=== PATIENT | female | born 1965 | race Caucasian/White ===

== ENCOUNTER → 2018-12-03 | Outpatient (CLI) | payer OTHER ==
--- NOTE | 2018-12-03 15:24 | REPMRS ---
Patient History The patient states she had a clinical breast exam in 11/2018. Family history of breast cancer at age 50 in maternal aunt. Took hormonal contraceptives for 8 months. Digital Woman Screen Mammo: December 03, 2018 - Exam #: [id number] Bilateral CC and MLO view(s) were taken. Technologist: Harleen Mills, Technologist Prior study comparison: December 20, 2011, bilateral digital mammo screening bilat performed at [facility]. FINDINGS: There are scattered fibroglandular densities. There has been no change in the appearance of the mammogram from the prior studies. There is a mild amount of scattered fibroglandular density which is fairly symmetric. There is no interval development of dominant mass, architectural distortion, or clustered microcalcification suggestive of malignancy. 3-D tomosynthesis shows no additional findings. Assessment: BI-RADS/ACR category 1 mammogram. Negative Mammogram. Recommendation Routine screening mammogram of both breasts in 1 year (for women over age 40). This patient's Lifetime Breast Cancer RIsk is estimated at 13.0 %. This mammogram was interpreted with the aid of an FDA-approved computer-aided dectection system. Electronically Signed By: Donaldo Wu MD 12/03/18 [id number]
== END ==
LOC: M WHC 10:59
PROVIDERS: ATTEND Nurse Practitioner Women's Health
DX: Z12.31 Encounter for screening mammogram for malignant neoplasm of breast (principal); Z80.3 Family history of malignant neoplasm of breast

== ENCOUNTER → 2019-12-07 | Outpatient (CLI) | payer OTHER ==
--- NOTE | 2019-12-08 08:07 | REP ---
BILATERAL MAMMOGRAM WITH 3D TOMOSYNTHESIS: Bilateral mammography was performed in the MLO and ML projections. Comparison is made with prior studies most recent of which is 12/03/2018. FAMILY HISTORY: Breast cancer in maternal aunt at age 50. Tyrer-zick lifetime risk of breast cancer 12.7%. There is moderate fibroglandular tissue scattered bilaterally. I see no suspicious mass or architectural distortion. Tiny calcifications are seen in the right retroareolar region. Magnification views are recommended to further evaluate. IMPRESSION: ACR 0 incomplete. Tiny calcifications in the right retroareolar region. Recommend magnification views to further evaluate. BIRADS 0: BI-RADS/ACR category 0 mammogram, Incomplete: Need additional imaging evaluation and/or prior mammograms for comparison. This mammogram was interpreted with the aid of an FDA-approved computer-aided detection system. The patient states she had a clinical breast exam in 11/29/2019. The patient letter being requested is M0.
== END ==
LOC: M WHC 14:33
PROVIDERS: ATTEND Nurse Practitioner Women's Health
DX: Z12.31 Encounter for screening mammogram for malignant neoplasm of breast (principal)

== ENCOUNTER → 2019-12-10 | Outpatient (CLI) | payer OTHER ==
--- NOTE | 2019-12-10 15:07 | REP ---
DIAGNOSTIC MAMMOGRAM RIGHT BREAST: Magnification views of the right breast are performed in the retroareolar region to evaluate possible tiny calcifications in that region. There does appear to be a cluster of pleomorphic microcalcifications at about 12-o'clock near the nipple. I would recommend stereotactic biopsy. IMPRESSION: ACR 4 suspicious. Area of clustered pleomorphic microcalcifications in the region of 12-o'clock right breast anteriorly. Recommend stereotactic biopsy. BIRADS 4: BI-RADS/ACR category 4 mammogram. Suspicious Abnormality - biopsy should be considered. This mammogram was interpreted with the aid of an FDA-approved computer-aided detection system. The patient letter being requested is M4. Electronically Signed by Thor Patel MD 12/10/2019 03:40 P
== END ==
LOC: M RAD 13:26
PROVIDERS: ATTEND Nurse Practitioner Women's Health
DX: Z12.31 Encounter for screening mammogram for malignant neoplasm of breast (principal)

== ENCOUNTER → 2020-01-12 | Outpatient (CLI) | payer OTHER ==
[~2020-01-12] MED LIST: MULTCAP PO
[2020-01-12 09:35] VITALS: BP 115/60
--- NOTE | 2020-01-12 11:16 | REP ---
Digital diagnostic unilateral right breast mammography: Two views. History: Marker clip placement views. This patient is status post stereotactic needle biopsy. Comparison mammography December 10, 2019. Findings: Mediolateral and craniocaudal views of the right breast demonstrate a needle biopsy marker clip in the inferomedial quadrant of the right breast. The clip appears to be somewhat inferior and perhaps a little posterior with respect to the remaining microcalcifications. There do appear to be fewer microcalcifications. Impression: Marker clip may be somewhat inferior and slightly posterior with respect to the remaining microcalcifications.
--- NOTE | 2020-01-12 15:18 | REP ---
Specimen radiography right breast. History: Patient is status post stereotactic needle biopsy procedure for microcalcifications right breast. Comparison mammography December 10, 2019. Findings: Two specimen radiographic views are obtained visualizing seven specimen collection devices. There are microcalcifications in three of these consistent with microcalcifications from the target grouping. Impression: There are microcalcifications in the removed specimen.
--- NOTE | 2020-01-13 08:03 | ROOPDOC ---
[facility] Report Of Operation Report of Operation DATE OF PROCEDURE: 01/12/20 PREPROCEDURE DIAGNOSES: Right breast suspicious calcifications POSTPROCEDURE DIAGNOSES: Right breast suspicious calcifications PROCEDURE: Right breast stereotactic biopsy of suspicious calcifications with clip placement SURGEON: Colt Kraft [employer] CLERK: ANESTHESIA: Local ESTIMATED BLOOD LOSS: Minimal COMPLICATIONS: None REMARKS: Postbiopsy right breast mammogram shows clip at the inferior and posterior position with regards to calcifications DESCRIPTION OF PROCEDURE: Lidocaine 1% LOT [id number] Expiration 12/2020 Sodium Bicarbonate 8.4% LOT [id number] Expiration 07/2021 Hydromark clip LOT [id number] Expiration 08/2021 REF 4010-01-16-T1 titanium shaped 1 (closed Spring) DID NOT DEPLOYED during sample #1 Hydromark clip LOT [id number] Expiration 01/2021 REF 4010-01-16-T1 titanium shaped 1 (closed Spring) sample #2 Bx device: Stereotactic Mammotome Revolve Dual Vacuum- assisted Biopsy System 10 G LOT [id number] Expiration 10/2022 REF [id number] sample #1 Bx device: Stereotactic Mammotome Revolve Dual Vacuum- assisted Biopsy System 10 G LOT [id number] Expiration 10/2022 REF [id number] sample #2 (new device) Informed consent was obtained in the preop area. The most common risk and possible complications including bleeding, hematoma, bruising, infection, injury to surrounding structures were explained to the patient and she/he expressed understanding. Patient was taken to the procedure room and placed prone on the [facility] Breast Biopsy table with the right breast hanging through the table aperture. Right breast was placed into Cranio-Caudal compression and [employer] kalyn images were taken. Suspicious calcifications were identified in the retroareolar region on the kalyn images and target was set. At this time, since we were able to confirm visibility of the suspicious calcifications and patient tolerated prone positioning allowing to proceed with the biopsy, appropriate time out was done stating patients name, date of , and the procedure to be performed. The right breast in CC compression was prepped in the usual fashion. Plain Lidocaine 1% and 8.4% sodium bicarbonate 10:1 mix was used to numb the skin, the biopsy site and tissues along the anticipated biopsy tract. Small skin incision was made with blade number 11. Mammotome 10 G stereotactic breast biopsy device was inserted through the incision and advanced to the previously set coordinates marking the target lesion. Pre-fire imaging was taken to assure appropriate positioning. At this time, Mammotome 10 G breast biopsy device was fired and vacuum assisted biopsies were collected. The biopsy samples were investigated with [employer] system and only very few calcifications were seen. Biopsy samples were then placed in the formaldehyde, marked with patients name and right breast biopsy site #1, and sent to pathology for evaluation. Hydromark clip was placed into the Mammotome biopsy device channel and deployed. Post-deployment imaging was done to assure appropriate clip deployment. Clip was not seen in the right breast which suggest malfunction of the clip device. Due to the fact that only a few calcifications were seen in the radiography of the specimen, decision was made to collect another sample. A new Mammotome device was placed. Keeping patient in the same CC compression, a new shout view was obtained and a group of calcifications inferior to current biopsy site was identified and new target was set. Additional local anesthetic was given to anesthetize the area of new target. Pre-fire imaging was taken to assure appropriate positioning. At this time, Mammotome 10 G breast biopsy device was fired and vacuum assisted biopsies were collected. The biopsy samples were investigated with F[employer] Imaging system and a few calcifications were seen. Biopsy samples were then placed in the formaldehyde, marked with patients name and right breast biopsy site #2, and sent to pathology for evaluation. Hydromark clip was placed into the Mammotome biopsy device channel and deployed. Post-deployment imaging was done to assure appropriate clip deployment. Clip was seen in the right breast post deployment. At this point, paddle CC compression of the right breast was released and manual pressure was held to decrease harmonic effect and to assure hemostasis. No bleeding was noted upon removal of the pressure. Patient was slowly repositioned and placed into sitting position, and then assisted off the table. Post-biopsy mammogram of the right breast was obtained and showed clip in position posterior and inferior to suspicious calcifications. Postprocedural dressing was placed. Patient tolerated procedure well and was taken to the recovery unit in stable condition. Discharge instructions were discussed with the patient and she expressed understanding. COLT KRAFT DO Jan 13, 2020 08:03
== END ==
LOC: M WHCPRO 07:39
PROVIDERS: ATTEND Surgery
DX: R92.1 Mammographic calcification found on diagnostic imaging of breast (principal)

== ENCOUNTER → 2020-02-02 | Outpatient (CLI) | payer OTHER ==
[~2020-02-02] MED LIST changes: +LIDOCAINE 1% MDV 20ML VIAL As Ordered ONE; +SODIUM BICARBONATE 8.4% INJ 50MEQ 50 ML VIAL As Ordered ONE
[2020-02-02 13:20] VITALS: BP 134/72
--- NOTE | 2020-02-02 13:54 | REP ---
DIAGNOSTIC UNILATERAL RIGHT BREAST MAMMOGRAPHY WITH CAD: Two views. HISTORY: Marker clip placement views. Status post repeat stereotactic needle biopsy for microcalcifications. Comparison is made with the initial post biopsy marker clip placement views from January 12, 2020. MAMMOGRAPHIC FINDINGS: Today's marker clip is seen superior and somewhat lateral in relation to the previously positioned marker clip. This appears to be in the location of the microcalcific target. No hematoma is seen. IMPRESSION: Marker clip in good position. Electronically Signed by Tera Wu MD 02/02/2020 02:17 P
--- NOTE | 2020-02-02 13:56 | REP ---
SPECIMEN RADIOGRAPHY RIGHT BREAST: Two views. HISTORY: Repeat stereotactic needle biopsy for microcalcifications. Comparison mammography January 12, 2020 and the December 10, 2019. FINDINGS: Specimen radiography demonstrates three to four microcalcifications from the target grouping scattered in the retrieved specimens. IMPRESSION: There are microcalcifications visible. Electronically Signed by Tera Wu MD 02/02/2020 02:17 P
--- NOTE | 2020-02-03 11:15 | REP ---
STEREOTACTIC RIGHT BREAST BIOPSY The procedure was performed under the direct supervision of Dr. Wu The patient has a history of an area of clustered pleomorphic microcalcifications in the region of the 12 o'clock position of the right breast seen on a previous mammogram dated 12/10/2019. This was biopsied previously on 01/12/2020. The patient is referred for rebiopsy. The risks and benefits of the procedure were explained to the patient and informed consent was obtained. A craniocaudal approach was utilized. The calcifications were localized using stereotactic mammographic guidance. 1% Xylocaine was used as a local anesthetic. A 10 gauge, suction assisted Mammotome needle was inserted and 6 core biopsy samples were obtained. Specimen radiograph demonstrates the presence of calcifications to be within the specimen. A marker clip was placed at the biopsy site. The patient tolerated the procedure well and there were no immediate complications. After the appropriate amount of monitored convalescence, the patient was discharged from the department. Electronically Signed by MARY ANN Dominguez 02/02/2020 04:32 P Electronically Signed by Tera Wu MD 02/03/2020 11:05 A
== END ==
LOC: M IRPRO 11:25
PROVIDERS: ATTEND Surgery
DX: R92.1 Mammographic calcification found on diagnostic imaging of breast (principal)

== ENCOUNTER → 2020-08-14 | Outpatient (CLI) | payer OTHER ==
[~2020-08-14] MED LIST changes: -LIDOCAINE 1% MDV 20ML VIAL As Ordered ONE; -SODIUM BICARBONATE 8.4% INJ 50MEQ 50 ML VIAL As Ordered ONE
--- NOTE | 2020-08-19 13:43 | REP ---
UNILATERAL MAMMOGRAM RIGHT BREAST HISTORY: Benign stereotactic biopsies right breast 01/12/2020 and 02/02/2020. TECHNIQUE: MLO and CC views of the right breast are performed with 3D tomosynthesis. COMPARISON: Made with prior exams. FINDINGS: Once again, there are two biopsy clips anteriorly in the right breast in the retroareolar region, one is directly retroareolar and the other is slightly more inferomedial. A couple of residual tiny calcifications are again seen at that location with no increasing or new microcalcifications in the right breast. There is mild scattered fibroglandular tissue in the right breast. Volpara breast density is B. There is no new mass or architectural distortion. IMPRESSION: ACR 2 benign. Postbiopsy findings are stable with a couple of tiny microcalcifications in the right retroareolar region status post two negative, benign stereotactic biopsies anteriorly in the right breast. No new mass or clustered microcalcifications. Recommend follow-up bilateral mammogram in 11/2020. This mammogram was interpreted with the aid of an FDA approved computer-aided detection system. The patient states her last clinical breast exam was 01/2020. Patient letter: 1. [id number]
== END ==
LOC: M WHC 14:50
PROVIDERS: ATTEND Surgery
DX: R92.0 Mammographic microcalcification found on diagnostic imaging of breast (principal)

== ENCOUNTER 2020-12-06 19:27 | Emergency (ER) | payer OTHER ==
[~2020-12-06] VITALS: Ht 162.6 cm; Wt 93.1 kg
--- OUTSIDE RECORDS SUMMARY | 2020-12-06 19:38 | CCD ---
Author Author [facility] Organization [facility] Address Unknown Phone Unavailable Care Team Providers Care Tow Feeder Name Role Phone JASON PURI MD Unavailable Unavailable Cleopatra FELDMAN MD Unavailable Unavailable Cleopatra FELDMAN MD Unavailable Unavailable Cleopatra FELDMAN MD Unavailable Unavailable Cleopatra FELDMAN MD Unavailable Unavailable Cleopatra FELDMAN MD Unavailable Unavailable Cleopatra FELDMAN MD Unavailable Unavailable Cleopatra FELDMAN MD Unavailable Unavailable Cleopatra FELDMAN MD Unavailable Unavailable Cleopatra FELDMAN MD Unavailable Unavailable Cleopatra FELDMAN MD Unavailable Unavailable Cleopatra FELDMAN MD Unavailable Unavailable Cleopatra FELDMAN MD Unavailable Unavailable Cleopatra FELDMAN MD Unavailable Unavailable Cleopatra FELDMAN MD Unavailable Unavailable Cleopatra FELDMAN MD Unavailable Unavailable Cleopatra FELDMAN MD Unavailable Unavailable Cleopatra FELDMAN MD Unavailable Unavailable Cleopatra FELDMAN MD Unavailable Unavailable Cleopatra FELDMAN MD Unavailable Unavailable Cleopatra FELDMAN MD Unavailable Unavailable Cleopatra FELDMAN MD Unavailable Unavailable Cleopatra FELDMAN MD Unavailable Unavailable Cleopatra FELDMAN MD Unavailable Unavailable Cleopatra FELDMAN MD Unavailable Unavailable Cleopatra FELDMAN MD Unavailable Unavailable Cleopatra FELDMAN MD Unavailable Unavailable Cleopatra FELDMAN MD Unavailable Unavailable Cleopatra FELDMAN MD Unavailable Unavailable Cleopatra FELDMAN MD Unavailable Unavailable Cleopatra FELDMAN MD Unavailable Unavailable Cleopatra FELDMAN MD Unavailable Unavailable Cleopatra FELDMAN MD Unavailable Unavailable Cleopatra FELDMAN MD Unavailable Unavailable Cleopatra FELDMAN MD Unavailable Unavailable Cleopatra FELDMAN MD Unavailable Unavailable Cleopatra FELDMAN MD Unavailable Unavailable Cleopatra FELDMAN MD Unavailable Unavailable Cleopatra FELDMAN MD Unavailable Unavailable Cleopatra FELDMAN MD Unavailable Unavailable Cleopatra FELDMAN MD Unavailable Unavailable Cleopatra FELDMAN MD Unavailable Unavailable Cleopatra FELDMAN MD Unavailable Unavailable Cleopatra FELDMAN MD Unavailable Unavailable Cleopatra FELDMAN MD Unavailable Unavailable Cleopatra FELDMAN MD Unavailable Unavailable Cleopatra FELDMAN MD Unavailable Unavailable Cleopatra FELDMAN MD Unavailable Unavailable Cleopatra FELDMAN MD Unavailable Unavailable Cleopatra FELDMAN MD Unavailable Unavailable Cleopatra FELDMAN MD Unavailable Unavailable Cleopatra FELDMAN MD Unavailable Unavailable Cleopatra FELDMAN MD Unavailable Unavailable Cleopatra FELDMAN MD Unavailable Unavailable Cleopatra FELDMAN MD Unavailable Unavailable Cleopatra FELDMAN MD Unavailable Unavailable Cleopatra FELDMAN MD Unavailable Unavailable Cleopatra FELDMAN MD Unavailable Unavailable Cleopatra FELDMAN MD Unavailable Unavailable Cleopatra FELDMAN MD Unavailable Unavailable Cleoptara FELDMAN MD Unavailable Unavailable Cleopatra FELDMAN MD Unavailable Unavailable Cleopatra FELDMAN MD Unavailable Unavailable Cleopatra FELDMAN MD Unavailable Unavailable Cleopatra FELDMAN MD Unavailable Unavailable Cleopatra FELDMAN MD Unavailable Unavailable Cleopatra FELDMAN MD Unavailable Unavailable Cleopatra FELDMAN MD Unavailable Unavailable Cleopatra FELDMAN MD Unavailable Unavailable Cleopatra FELDMAN MD Unavailable Unavailable Cleopatra FELDMAN MD Unavailable Unavailable Cleopatra FELDMAN MD Unavailable Unavailable Cleopatra FELDMAN MD Unavailable Unavailable Cleopatra FELDMAN MD Unavailable Unavailable Cleopatra FELDMAN MD Unavailable Unavailable Cleopatra FELDMAN MD Unavailable Unavailable Cleopatra FELDMAN MD Unavailable Unavailable Cleopatra FELDMAN MD Unavailable Unavailable Cleopatra FELDMAN MD Unavailable Unavailable Cleopatra FELDMAN MD Unavailable Unavailable Cleopatra FELDMAN MD Unavailable Unavailable Cleopatra FELDMAN MD Unavailable Unavailable Cleopatra FELDMAN MD Unavailable Unavailable Cleopatra FELDMAN MD Unavailable Cleopatra De Oliveira MD Unavailable Unavailable Robert PURI MD Unavailable Unavailable JAXSON, Robert TSAI MD Unavailable Unavailable JAXSON, Robert TSAI MD Unavailable Unavailable JAXSON, Robert TSAI MD Unavailable Unavailable JAXSON, Robert TSAI MD Unavailable Unavailable JAXSON, Robert TSAI MD Unavailable Unavailable JAXSON, Robert TSAI MD Unavailable Unavailable JAXSON, Robert TSAI MD Unavailable Unavailable JAXSON, Robert TSAI MD Unavailable Unavailable JAXSON, Robert TSAI MD Unavailable Unavailable JAXSON, Robert TSAI MD Unavailable Unavailable JAXSON, Robert TSAI MD Unavailable Unavailable JAXSON, Robert TSAI MD Unavailable Unavailable JAXSON, Robert TSAI MD Unavailable Unavailable JAXSON, Robert TSAI MD Unavailable Unavailable JAXSON, Robert TSAI MD Unavailable Unavailable JAXSON, Robert TSAI MD Unavailable Unavailable JAXSON, Robert TSAI MD Unavailable Unavailable JAXSON, Robert TSAI MD Unavailable Unavailable JAXSON, Robert TSAI MD Unavailable Unavailable JAXSON, Robert TSAI MD Unavailable Unavailable Maring, Asim PA Unavailable Unavailable Maring, Asim PA Unavailable Unavailable Maring, Asim PA Unavailable Unavailable Maring, Asim PA Unavailable Unavailable Maring, Asim PA Unavailable Unavailable Maring, Asim PA Unavailable Unavailable Maring, Asim PA Unavailable Unavailable Maring, Asim PA Unavailable Unavailable Maring, Asim PA Unavailable Unavailable Maring, Asim PA Unavailable Unavailable Maring, Asim PA Unavailable Unavailable Maring, Asim PA Unavailable Unavailable Maring, Asim PA Unavailable Unavailable Maring, Asim PA Unavailable Unavailable LETTIERE, A AMADEO PA Unavailable Unavailable LETTIERE, A AMADEO PA Unavailable Unavailable LETTIERE, A AMADEO PA Unavailable Unavailable LETTIERE, A AMADEO PA Unavailable Unavailable LETTIERE, A AMADEO PA Unavailable Unavailable LETTIERE, A AMADEO PA Unavailable Unavailable LETTIERE, A AMADEO PA Unavailable Unavailable LETTIERE, A AMADEO PA Unavailable Unavailable LETTIERE, A AMADEO PA Unavailable Unavailable LETTIERE, A AMADEO PA Unavailable Unavailable LETTIERE, A AMADEO PA Unavailable Unavailable LETTIERE, A AMADEO PA Unavailable Unavailable LETTIERE, A AMADEO PA Unavailable Unavailable LETTIERE, A AMADEO PA Unavailable Unavailable LETTIERE, A AMADEO PA Unavailable Unavailable LETTIERE, A AMADEO PA Unavailable Unavailable LETTIERE, A AMADEO PA Unavailable Unavailable LETTIERE, A AMADEO PA Unavailable Unavailable LETTIERE, A AMADEO PA Unavailable Unavailable LETTIERE, A AMADEO PA Unavailable Unavailable LETTIERE, A AMADEO PA Unavailable Unavailable LETTIERE, A AMADEO PA Unavailable Unavailable LETTIERE, A AMADEO PA Unavailable Unavailable LETTIERE, A AMADEO PA Unavailable Unavailable LETTIERE, A AMADEO PA Unavailable Unavailable LETTIERE, A AMADEO PA Unavailable Unavailable LETTIERE, A AMADEO PA Unavailable Unavailable LETTIERE, A AMADEO PA Unavailable Unavailable LETTIERE, A AMADEO PA Unavailable Unavailable Re-disclosure Warning The records that you are about to access may contain information from federally-assisted alcohol or drug abuse programs. If such information is present, then the following federally mandated warning applies: This information has been disclosed to you from records protected by federal confidentiality rules (42 CFR part 2). The federal rules prohibit you from making any further disclosure of this information unless further disclosure is expressly permitted by the written consent of the person to whom it pertains or as otherwise permitted by 42 CFR part 2. A general authorization for the release of medical or other information is NOT sufficient for this purpose. The Federal rules restrict any use of the information to criminally investigate or prosecute any alcohol or drug abuse patient.The records that you are about to access may contain highly sensitive health information, the redisclosure of which is protected by Article 27-F of the [facility] Public Health law. If you continue you may have access to information: Regarding HIV / AIDS; Provided by facilities licensed or operated by the [facility] Office of Mental Health; or Provided by the [facility] Office for People With Developmental Disabilities. If such information is present, then the following [facility] mandated warning applies: This information has been disclosed to you from confidential records which are protected by state law. State law prohibits you from making any further disclosure of this information without the specific written consent of the person to whom it pertains, or as otherwise permitted by law. Any unauthorized further disclosure in violation of state law may result in a fine or custodial sentence or both. A general authorization for the release of medical or other information is NOT sufficient authorization for further disc losure. Allergies and Adverse Reactions Type Description Substance Reaction Status Data Source(s ) hormones hormones hormones DVT Active eCW1 ([facility]) hormones hormones hormones DVT Active eCW1 ([facility]) hormones hormones hormones DVT Active eCW1 ([facility]) Family History Family Member Name Family Member Gender Family Member Status Date o f Status Description Data Source(s) Unknown Unknown Problem MEDENT ([facility]) Encounters Encounter Providers Location Date Indications Data Source(s ) Recurring Patient Referrer: PEPPER FELDMAN MD 12/06/2020 08:30:24 AM EST [facility] Outpatient Attender: PEPPER FELDMAN MDReferrer: PEPPER BURNETT MD 12/05/2020 10:06:38 AM EST [facility] Recurring Patient Referrer: PEPPER FELDMAN MD 12/04/2020 01:46:10 PM EST [facility] Recurring Patient Referrer: PEPPER FELDMAN MD 12/04/2020 01:44:06 PM EST [facility] Recurring Patient Referrer: PEPPER FELDMAN MD 12/04/2020 08:26:53 AM EST [facility] O Attender: Asim FOX 11/26/19 04:53:07 PM EST - 11/26/2020 05:24:03 PM EST [facility] ([facility] ) Unknown [address] [address] 09/06/2020 12:00:00 AM EDT eCW1 ([facility]) Outpatient 02/18/2020 04:47:00 AM EDT [facility] Outpatient [address] [address] 02/07/2020 12:00:00 AM EDT eCW1 ([facility]) Outpatient 01/17/2020 11:04:00 AM EDT [facility] Breast Care [address] [place] [address] 01/17/2020 12:00:00 AM EDT eCW1 ([facility]) [facility] Breast [facility] [address] [place] [address] 01/03/2020 12:00:00 AM EST eCW1 ([facility]) Outpatient 12/21/2019 08:23:00 PM EST [facility] [address] [place] [address] 12/07/2019 12:00:00 AM EST eCW1 ([facility]) Outpatient Attender: AMADEO marrufo 10/10/2019 10:45:00 AM EST MEDENT ([facility]) Outpatient Attender: EULALIO PURI MDAttender: JASON OLGUIN MD ER-LAB-PNP 11/26/2018 01:35:00 PM [facility] Medications Medication Brand Name Start Date Product Form Dose Route Admi nistrative Instructions Pharmacy Instructions Status Indications Reaction Description Data Source(s) Amoxicillin 875 MG Oral Tablet Amoxicillin 11/22/2019 12:00:00 AM EST active MEDENT ([facility], [facility]) Amoxicillin 875 MG Oral Tablet Amoxicillin 10/10/2019 12:00:00 AM EST completed MEDENT ([facility]) Insurance Providers Payer name Policy type / Coverage type Policy ID Covered green party ID Covered green party's relationship to jarvis Policy Jarvis Plan Information [employer] [id number] SP [id number] Workers Comp Carrier I WorkComp Health Claim [id number] Emplo day [id number] CSP [facility] [id number] SP [id number] [facility] O [id number] S [id number] [employer] O [id number] S [id number] PCIP [id number] S [id number] 9PCIP ANSI-Commercial [id number] [facility] [id number] S [id number] [facility]SP [facility] [id number] SP [id number] Problems, Conditions, and Diagnoses Code Display Name Description Problem Type Effective Dates Data Source(s) Z86.711 [id number] History of pulmonary embolus (PE) Problem 01/09/2020 12:00:00 AM EST eCW1 ([facility]) Z86.711 [id number] History of pulmonary embolus (PE) Problem 01/09/2020 12:00:00 AM EST eCW1 ([facility]) Surgeries/Procedures Procedure Description Date Indications Data Source(s) RMVL IMPACTED CERUMEN SPX 1/BOTH EARS 11/22/2019 12:00 :00 AM EST MEDENT ([facility], [facility]) Results ID Date Data Source [id number] 12/05/2020 10:06:38 AM EST [facility]: Tyron AcevedoOB: 1965Provider: Desean Feldman: 12/04/2020 Reason For VisitKicastillo Frank is here today for right shoulder. Tyron Frank is a new patient. W.C. DOI: 11/21/20. Patient states the injury occurred from lifting. The patient was notified that the office visit was recorded to enhance documentation accuracy. 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 History of Present IllnessCHIEF COMPLAINTRight shoulder pain.HISTORY OF PRESENT ILLNESSThis is a 55-year-old [id number] female who presents for an initial evaluation regarding her right shoulder. This is a workers' compensation injury from 11/21/2020. The patient reports that she began experiencing pain in her shoulder after lifting a heavy box at work. She states that she felt a pop in her right shoulder at the time of injury. The patient was evaluated at [facility] following the injury, where she was advised that this was a workers' compensation injury. She states that her pain radiates around her neck and down her arm. The patient states that she is unable to turn her head fully. She affirms taking a muscle relaxer for her symptoms, but this did not provide relief.Medical history is negative. The patient does not have a primary care physician. 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 Results/DataAxillary views of the right shoulder were ordered, obtained, and interpreted today in the office. These show some AC joint degenerative changes, but otherwise unremarkable. Results/Data OtherX-rays of the right shoulder performed on 11/26/2020 were reviewed. These show some AC joint degenerative changes with type 2 acromion. AssessmentASSESSMENTRight shoulder myofascial pain. Plan X-Ray I Shoulder - 1 view (XRays were ordered, obtained and interpreted today in theoffice. Indication: pain/dysfunction.); Status:Complete; Done: 04Dec2020 Perform:SOS28; Due:18Dec2020; Last Updated By:South Baker; 12/04/2020 2:32:34 PM;Ordered; For:Right shoulder pain; Ordered By:Pepper Feldman;Laterality: : Right Physical Therapy (SOS) - General WC Treatment Treatment Status: Complete Done:04Dec2020 Ordered;For: Right shoulder pain; Ordered By: Pepper Feldman Performed: Order Comments: right shoulder myofacila pain Due: 18Dec2020; Last Updated By: Analilia Malik; 12/04/2020 2:56:56 PMPT Protocol : Evaluate and treat as indicated, per protocol or as previously written.Duration: : Six WeeksPT Frequency : Two or three times a weekLaterality and Body Part : right shoulder Work Note WC (SOS) Treatment Treatment Status: Complete Done: 04Dec2020 Ordered;For: Health Maintenance; Ordered By: Pepper Feldman Performed: Order Comments: return to work full duty Due: 18Dec2020; Last Updated By: Analilia Malik; 12/04/2020 2:56:56 PMCondition Due To Work Related Injury Of: : shoulderNext Appt : 6 weeks, to be scheduledSeen Today for Evaluati on and Treatment : The patient was seen today in the office for evaluation and treatment. Eduin patient presents with right shoulder pain that began on 11/21/2020 after lifting a heavy box at work. I reviewed with the patient their exam and imaging findings. At this point, she lifted a heavy box causing pain in the right shoulder and neck region. I think it is most likely myofascial. She has a lot of tenderness in the mid scapular border. I explained the anatomy of the shoulder. We discussed their diagnosis as well as treatment options. I think she would benefit from physical therapy and a Medrol Dosepak, and she was provided with a prescription for these today. She has an unknown medical history because she does not have insurance and has not seen a medical doctor in many years, but she does not claim to have any medical history. Therefore, we will give her a Medrol Dosepak, and she will take the muscle relaxer as needed. We will allow her to return to work without restrictions at 0 percent disability. I did stress the importance of coordinating some health insurance that she can start getting seen regularly by her primary care physician. All questions were answered. She will follow up in 6 weeks. The patient understands and agrees with this plan. Work / School NoteThe incident described by the patient is a competent medical cause of this injury. The patient's complaints are consistent with the history of the injury/illness. The patient's history of the injury/illness is consistent with my objective findings. The percentage of temporary impairment is 0%. The patient is working at this time. 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 Scribed by Jas Foster on 12/05/2020 at 09:15 AM for Pepper Feldman Signatures Electronically signed by : Jas Foster MA; Dec 05 2020 9:15AM EST (Author) Electronically signed by : Pepper Feldman M.D.; Dec 05 2020 10:06AM EST Name Value Range Interpretation Code Description Data Etta rce(s) Supporting Document(s) ID Date Data Source [id number] 11/07/2020 07:57:00 AM EST [facility] FASTING: UNKNOWNReceived: 11/07/2020 at 06:10:00 QPT: [facility] [address], [address] [place] [address], [phone], Richard Gomez MD Name Value Range Interpretation Code Description Data Etta rce(s) Supporting Document(s) Hemoglobin.gastrointestinal [Presence] in Stool by Immunologic method [facility] FECAL GLOBIN BY IMMUNOCHEMISTRY Micro Number: [id number] Test Status: Final Specimen Source: NOT GIVEN Specimen Quality: Adequate Fecal Globin: Not Detected We received an InSure card with a non-specific order. Based upon the specimen submitted, the fecal globin test was performed. If this is not what you intended to order, please contact your local client application support engineer immediately so that we can adjust our billing appropriately. You may also inquire about alternative or additional testing. ID Date Data Source [id number] 11/25/2019 03:42:00 PM EST [facility] FASTING: UNKNOWNReceived: 11/24/2019 at 20:41:00 QPT: [facility], [address] [place] [address], [phone], Richard Gomez MD Name Value Range Interpretation Code Description Data Etta rce(s) Supporting Document(s) Hemoglobin.gastrointestinal [Presence] in Stool by Immunologic method [facility] FECAL GLOBIN BY IMMUNOCHEMISTRY Micro Number: [id number] Test Status: Final Specimen Source: INSURE (TM) FOBT TEST CARD Specimen Quality: Adequate Fecal Globin: Not Detected We received an InSure card with a non-specific order. Based upon the specimen submitted, the fecal globin test was performed. If this is not what you intended to order, please contact your local client application support engineer immediately so that we can adjust our billing appropriately. You may also inquire about alternative or additional testing. Procedure Vital Signs ID Date Data Source UNK Name Value Range Interpretation Code Description Data Source(s) Diastolic blood pressure 88 mm[Hg] 88 mm[Hg] eCW1 ([facility]) Systolic blood pressure 140 mm[Hg] 140 mm[Hg] e CW1 ([facility]) Body temperature 98.3 [degF] 98.3 [degF] eCW1 ( [facility]) Respiratory rate 18 /min 18 /min eCW1 ([facility]) Heart rate 72 /min 72 /min eCW1 ([facility]) Body mass index (BMI) [Ratio] 36.73 kg/m2 36.73 kg/m2 eCW1 ([facility]) Body height 64 [in_us] 64 [in_us] eCW1 ([facility]) Body weight Measured 214 [lb_av] 214 [lb_av] eC W1 ([facility]) Diastolic blood pressure 92 mm[Hg] 92 mm[Hg] eCW1 ([facility]) Systolic blood pressure 148 mm[Hg] 148 mm[Hg] e CW1 ([facility]) Body temperature 97.8 [degF] 97.8 [degF] eCW1 ( [facility]) Respiratory rate 18 /min 18 /min eCW1 ([facility]) Heart rate 84 /min 84 /min eCW1 ([facility]) Body mass index (BMI) [Ratio] 36.73 kg/m2 36.73 kg/m2 eCW1 ([facility]) Body height 64 [in_us] 64 [in_us] eCW1 ([facility]) Body weight Measured 214 [lb_av] 214 [lb_av] eC W1 ([facility]) Body mass index (BMI) [Ratio] 37.59 kg/m2 37.59 kg/m2 eCW1 ([facility]) Body height 64 [in_us] 64 [in_us] eCW1 ([facility]) Body weight Measured 219 [lb_av] 219 [lb_av] eC W1 ([facility]) Body mass index (BMI) [Ratio] 36.9 kg/m2 36.9 k g/m2 MEDENT ([facility], [facility]) Body height 64 [in_i] 64 [in_i] MEDENT ([facility]) 5'4" Body weight 215.00 [lb_av] 215.00 [lb_av] MEDEN T ([facility], [facility]) Body temperature 97.9 [degF] 97.9 [degF] MEDENT ([facility] [place], [facility]) Oxygen saturation in Arterial blood by Pulse oximetry 96 % 96 % MEDENT ([facility] [place], [facility]) Respiratory rate 16 /min 16 /min MEDENT ( [facility], [facility]) Heart rate 70 /min 70 /min MEDENT ([facility], [facility]) Diastolic blood pressure 84 mm[Hg] 84 mm[Hg] MEDENT ([facility] [place], [facility]) Systolic blood pressure 138 mm[Hg] 138 mm[Hg] M EDENT ([facility], [facility]) Body mass index (BMI) [Ratio] 36.0 kg/m2 36.0 k g/m2 MEDENT ([facility], [facility]) Body height 64 [in_i] 64 [in_i] MEDENT ([facility]) 5'4" Body weight 210.00 [lb_av] 210.00 [lb_av] MEDEN T ([facility] [place], [facility]) Body temperature 98.1 [degF] 98.1 [degF] MEDENT ([facility] [place], [facility]) Oxygen saturation in Arterial blood by Pulse oximetry 98 % 98 % MEDENT ([facility], [facility]) Respiratory rate 18 /min 18 /min MEDENT ( [facility] [place], [facility]) Heart rate 94 /min 94 /min MEDENT ([facility], [facility]) Diastolic blood pressure 81 mm[Hg] 81 mm[Hg] MEDENT ([facility] [place], [facility]) Systolic blood pressure 150 mm[Hg] 150 mm[Hg] [facility] [place])
--- OUTSIDE RECORDS SUMMARY | 2020-12-06 19:38 | CCD ---
Author Author [facility] Organization [facility] Address Unknown Phone Unavailable Care Team Providers Care Network Programmer Name Role Phone Mario Kirstin Unavailable PROBLEMS Type Condition ICD9-CM Code [id number] Code Onset Dates Condition S tatus SNOMED Code Notes Problem History of pulmonary embolus (PE) Z86.711 Active [id number] ALLERGIES Allergen (clinical drug ingredient) Drug/Non Drug Allergy do cumented on EMR Reaction Allergy Type Onset Date Status hormones DVT Non Drug Allergy Active ENCOUNTERS from 1965 to 2020-09-07 Encounter Location Date Provider Diagnosis [facility] Breast Care [address] [place] [address] Aug, Kirstin Martin IMMUNIZATIONS No Information SOCIAL HISTORY Sex Assigned At : Social History Observation Description Sex Assigned At Unknown Language: Question Answer Notes Languages spoken: Bermudian Sexual Hx: Question Answer Notes Had sex in the last 12 months (vaginal, oral, or anal)? Yes LMP: hyster Have you ever had an STD? No with Men only BMI Care Goal Follow-Up Question Answer Notes Above Normal BMI Follow-Up Giving encouragement to exercise, Weight monitoring REASON FOR REFERRAL No Information VITAL SIGNS No information MEDICATIONS Medication SIG (Take, Route, Frequency, Duration) Start Date En d Date Status Collagen Ultra - as directed Orally Activ e Swrhpyn-Niykknbpfo-Buium Seed 900-100-100 MG as directed Orally Active Multivitamins - 1 cap Orally Daily Active PROCEDURES No Information RESULTS No Results REASON FOR VISIT results of R mammogram MEDICAL (GENERAL) HISTORY Type Description Date Medical History perimenopause Medical History depression Surgical History C section x 3 Surgical History appendectomy Surgical History umbilical hernia repair Surgical History wisdom teeth Surgical History partial hysterectomy ovaries preserved 0 06/2013 Surgical History Right breast stereotactic biopsy - fibro cystic changes 01/12/2020 Hospitalization History No Hospitalization history informati on Goals Section No Information Health Concerns No Information MEDICAL EQUIPMENT No Information MENTAL STATUS No Information FUNCTIONAL STATUS No Information ASSESSMENTS No Information PLAN OF TREATMENT No Information Insurance Providers Payer Name Payer Address Payer Phone Insured Name Patient Relati onship to Insured Coverage Start Date Coverage End Date CSP -CANCER SERVICES PROGRAM [address] [facility] [address] TYRON RUSSELL self
--- OUTSIDE RECORDS SUMMARY | 2020-12-06 21:24 | CCD ---
Author Author [facility] Organization [facility] Address Unknown Phone Unavailable Care Team Providers Care Dye Range Feeder Name Role Phone JASON PURI MD [...] is protected by Article 27-F of the [facility] Public Health law. If you continue you may have access to information: Regarding HIV / AIDS; Provided by facilities licensed or operated by the [facility] Office of Mental Health; or Provided by the [facility] Office for People With Developmental Disabilities. If such information is present, then the following [facility] mandated warning applies: This information has [...] law may result in a fine or intermediate sentence or both. A general authorization for the release of medical or other information is NOT sufficient authorization for further disc losure. Allergies and Adverse Reactions Type Description Substance Reaction Status Data Source(s ) hormones hormones hormones DVT Active eCW1 ([facility]) hormones hormones hormones DVT Active eCW1 ([facility]) hormones hormones hormones DVT Active eCW1 ([facility]) Family History Family Member Name Family Member Gender Family Member Status Date o f Status Description Data Source(s) Unknown Unknown Problem MEDENT ([facility]) Encounters Encounter Providers Location Date Indications Data Source(s ) Recurring Patient Referrer: PEPPER FELDMAN MD 12/06/2020 08:30:24 AM EST [facility] Outpatient Attender: PEPPER FELDMAN MDReferrer: PEPPER BURNETT MD 12/05/2020 10:06:38 AM EST [facility] Recurring Patient Referrer: PEPPER FELDMAN MD 12/04/2020 01:46:10 PM EST [facility] Recurring Patient Referrer: PEPPER FELDMAN MD 12/04/2020 01:44:06 PM EST [facility] Recurring Patient Referrer: PEPPER FELDMAN MD 12/04/2020 08:26:53 AM EST [facility] O Attender: Asim FOX 11/26/19 04:53:07 PM EST - 11/26/2020 05:24:03 PM EST [facility] ([facility] ) Unknown [address] [facility] [address] 09/06/2020 12:00:00 AM EDT eCW1 ([facility]) Outpatient 02/18/2020 04:47:00 AM EDT [facility] Outpatient [address] [address] 02/07/2020 12:00:00 AM EDT eCW1 ([facility]) Outpatient 01/17/2020 11:04:00 AM EDT [facility] Breast Care [address] [place] [address] 01/17/2020 12:00:00 AM EDT eCW1 ([facility]) [facility] Breast Care [address] [place] [address] 01/03/2020 12:00:00 AM EST eCW1 ([facility]) Outpatient 12/21/2019 08:23:00 PM EST [facility] [address] [place] [address] 12/07/2019 12:00:00 AM EST eCW1 ([facility]) Outpatient Attender: AMADEO marrufo 10/10/2019 10:45:00 AM EST MEDENT ([facility]) Outpatient Attender: EULALIO PURI MDAttender: JASON OLGUIN MD ER-LAB-PNP 11/26/2018 01:35:00 PM EST [facility] Medications Medication Brand Name Start Date Product Form Dose Route Admi nistrative Instructions Pharmacy Instructions Status Indications Reaction Description Data Source(s) Amoxicillin 875 MG Oral Tablet Amoxicillin 11/22/2019 12:00:00 AM EST active MEDENT ([facility]) Amoxicillin 875 MG Oral Tablet Amoxicillin 10/10/2019 12:00:00 AM EST completed MEDENT ([facility], [facility]) Insurance Providers Payer name Policy type / Coverage type Policy ID Covered libertarian ID Covered libertarian's relationship to jarvis Policy Jarvis Plan Information OTHER W.C.EMPLOYER [id number] SP 1 [id number] [employer] SERVICES [employer]GRAM [id number] SP [id number] Workers Comp Carrier I WorkComp Health Claim [id number] Emplo day [id number] [facility] [id number] SP [id number] [facility] O [id number] S [id number] CANCER SERVICES PROGRAM O [id number] S [id number] PCIP [id number] S [id number] ANSI-[id number] [id number] [facility] [id number] S [id number] [facility] [id number] [place] [id number] Problems, Conditions, and Diagnoses Code Display Name Description Problem Type Effective Dates Data Source(s) Z86.711 [id number] History of pulmonary embolus (PE) Problem 01/09/2020 12:00:00 AM EST eCW1 ([facility]) Z86.711 [id number] History of pulmonary embolus (PE) Problem 01/09/2020 12:00:00 AM EST eCW1 ([facility]) Surgeries/Procedures Procedure Description Date Indications Data Source(s) RMVL IMPACTED CERUMEN SPX 1/BOTH EARS 11/22/2019 12:00 :00 AM EST MEDENT ([facility]) Results ID Date Data Source [id number] 12/05/2020 10:06:38 AM EST [facility]: Tyron LazobeDOB: 1965Provider: Yaima FeldmanS: 12/04/2020 Reason For VisitKicastillo Frank is here today for right shoulder. Tyron Frank is a new patient. W.C. DOI: 11/21/20. Patient states the injury occurred from lifting. The patient was notified that the office visit was recorded to enhance documentation accuracy. 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 History of Present IllnessCHIEF COMPLAINTRight shoulder pain.HISTORY OF PRESENT ILLNESSThis is a 55-year-old hjozg-hppp-vtsrhnoi female who presents for an initial evaluation regarding her right shoulder. This is a workers' compensation injury from 11/21/2020. The patient reports that she began experiencing pain in her shoulder after lifting a heavy box at work. She states that she felt a pop in her right shoulder at the time of injury. The patient was evaluated at [facility] following the injury, where she [...] this time. 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 Scribed by Jas Foster on 12/05/2020 at 09:15 AM for Pepper Feldman Signatures Electronically signed by : Jas Foster MA; Dec 05 2020 9:15AM EST (Author) Electronically signed by : Pepper Feldman M.D.; Dec 05 2020 10:06AM EST Name Value Range Interpretation Code Description Data Etta rce(s) Supporting Document(s) ID Date Data Source [id number] 11/07/2020 07:57:00 AM EST [facility] FASTING: UNKNOWNReceived: 11/07/2020 at 06:10:00 QPT: [facility] [place] [address], [address] [place] [address], [phone] MD Name Value Range Interpretation Code Description Data Etta rce(s) Supporting Document(s) Hemoglobin.gastrointestinal [Presence] in Stool by Immunologic method [facility] FECAL GLOBIN BY IMMUNOCHEMISTRY Micro Number: [id number] Test Status: Final Specimen Source: NOT GIVEN Specimen Quality: Adequate Fecal Globin: Not Detected We received an InSure card with a non-specific order. Based upon the specimen submitted, the fecal globin test was performed. If this is not what you intended to order, please contact your local client liaison immediately so that we can adjust our billing appropriately. You may also inquire about alternative or additional testing. ID Date Data Source [id number] 11/25/2019 03:42:00 PM EST [facility] FASTING: UNKNOWNReceived: 11/24/2019 at 20:41:00 [facility]: [facility] [address], [address] [place] [address], [phone] MD Name Value Range Interpretation Code Description Data Etta rce(s) Supporting Document(s) Hemoglobin.gastrointestinal [Presence] in Stool by Immunologic method [facility] FECAL GLOBIN BY IMMUNOCHEMISTRY Micro Number: [id number] Test Status: Final Specimen Source: INSURE (TM) FOBT TEST CARD Specimen Quality: Adequate Fecal Globin: Not Detected We received an InSure card with a non-specific order. Based upon the specimen submitted, the fecal globin test was performed. If this is not what you intended to order, please contact your local client liaison immediately so that we can adjust our billing appropriately. You may also inquire about alternative or additional testing. Procedure Vital Signs ID Date Data Source UNK Name Value Range Interpretation Code Description Data Source(s) Diastolic blood pressure 88 mm[Hg] 88 mm[Hg] eCW1 ([facility]) Systolic blood pressure 140 mm[Hg] 140 mm[Hg] e CW1 ([facility]) Body temperature 98.3 [degF] 98.3 [degF] eCW1 ( [facility]) Respiratory rate 18 /min 18 /min eCW1 ([facility]) Heart rate 72 /min 72 /min eCW1 ([facility]) Body mass index (BMI) [Ratio] 36.73 kg/m2 36.73 kg/m2 W1 ([facility]) Body height 64 [in_us] 64 [in_us] eCW1 ([facility]) Body weight Measured 214 [lb_av] 214 [lb_av] eC W1 ([facility]) Diastolic blood pressure 92 mm[Hg] 92 mm[Hg] eCW1 ([facility]) Systolic blood pressure 148 mm[Hg] 148 mm[Hg] e CW1 ([facility]) Body temperature 97.8 [degF] 97.8 [degF] eCW1 ( [facility]) Respiratory rate 18 /min 18 /min eCW1 ([facility]) Heart rate 84 /min 84 /min eCW1 ([facility]) Body mass index (BMI) [Ratio] 36.73 kg/m2 36.73 kg/m2 W1 ([facility]) Body height 64 [in_us] 64 [in_us] eCW1 ([facility]) Body weight Measured 214 [lb_av] 214 [lb_av] eC W1 ([facility]) Body mass index (BMI) [Ratio] 37.59 kg/m2 37.59 kg/m2 eCW1 ([facility]) Body height 64 [in_us] 64 [in_us] eCW1 ([facility]) Body weight Measured 219 [lb_av] 219 [lb_av] eC W1 ([facility]) Body mass index (BMI) [Ratio] 36.9 kg/m2 36.9 k g/m2 MEDENT ([facility]) Body height 64 [in_i] 64 [in_i] MEDENT ([facility], [facility]) 5'4" Body weight 215.00 [lb_av] 215.00 [lb_av] MEDEN T ([facility], [facility]) Body temperature 97.9 [degF] 97.9 [degF] MEDENT ([facility], [facility]) Oxygen saturation in Arterial blood by Pulse oximetry 96 % 96 % MEDENT ([facility], [facility]) Respiratory rate 16 /min 16 /min MEDENT ( [facility], [facility]) Heart rate 70 /min 70 /min MEDENT ([facility], [facility]) Diastolic blood pressure 84 mm[Hg] 84 mm[Hg] MEDENT ([facility], [facility]) Systolic blood pressure 138 mm[Hg] 138 mm[Hg] M EDENT ([facility], [facility]) Body mass index (BMI) [Ratio] 36.0 kg/m2 36.0 k g/m2 MEDENT ([facility], [facility]) Body height 64 [in_i] 64 [in_i] MEDENT ([facility], [facility]) 5'4" Body weight 210.00 [lb_av] 210.00 [lb_av] MEDEN T ([facility], [facility]) Body temperature 98.1 [degF] 98.1 [degF] MEDENT ([facility], [facility]) Oxygen saturation in Arterial blood by Pulse oximetry 98 % 98 % [facility]) Respiratory rate 18 /min 18 /min [facility] ( [facility], [facility]) Heart rate 94 /min 94 /min [facility] ([facility], [facility]) Diastolic blood pressure 81 mm[Hg] 81 mm[Hg] [facility] ([facility], [facility]) Systolic blood pressure 150 mm[Hg] 150 mm[Hg] [facility] ([facility], [facility])
--- NOTE | 2020-12-06 21:47 | REPVR ---
PROCEDURE INFORMATION: Exam: US Pelvis Limited, Transabdominal, Soft tissue Exam date and time: 12/06/2020 8:51 PM Age: 55 years old Clinical indication: Abdominal pain; Lower abdomen; Prior surgery; Surgery date: 6+ months; Surgery type: Umb hernia repair; Additional info: Concern for hernia TECHNIQUE: Imaging protocol: Real-time transabdominal pelvic ultrasound with image documentation. Limited exam. Exam focused on the soft tissue. COMPARISON: No relevant prior studies available. FINDINGS: Soft tissues: Echogenic small foci in the area of prior hernia repair region, possibly herniorrhaphy material. No evidence for hernia. IMPRESSION: No evidence for recurrent hernia Electronically signed by: Michoacano Wylie On 12/06/2020 21:47:42 PM
[2020-12-06 22:10] LABS: BASO # 0.1 10^3/uL (0.0-0.2); BASO % 0.8 % (0.0-1.0); EOS # 0.1 10^3/uL (0.0-0.5); EOS % 1.9 % (0.0-3.0); HEMOGLOBIN 14.7 g/dl (12.0-15.5); LYMPH % 32.8 % (24.0-44.0); MEAN CORPUSCULAR HEMOGLOBIN 28.6 pg (27.0-33.0); MEAN CORPUSCULAR HGB CONC 32.7 g/dl (32.0-36.5); MEAN CORPUSCULAR VOLUME 87.5 fl (80.0-96.0); MONO # 0.4 10^3/uL (0.0-0.8); MONO % 6.6 % (0.0-5.0); NEUTROPHILS # 3.4 10^3/uL (1.5-8.5); NEUTROPHILS % 57.7 % (36.0-66.0); PLATELET COUNT, AUTOMATED 237 10^3/uL (150-450); RED BLOOD COUNT 5.14 10^6/uL (4.00-5.40); WHITE BLOOD COUNT 5.9 10^3/uL (4.0-10.0)
[2020-12-06 22:35] LABS: ALT/SGPT 19 U/L (12-78); BILIRUBIN,DIRECT < 0.1 MG/DL (0.0-0.2); BILIRUBIN,TOTAL 0.4 MG/DL (0.2-1.0); LIPASE 146 U/L (73-393); TOTAL PROTEIN 7.8 GM/DL (6.4-8.2)
[2020-12-06 22:56] VITALS: BP 131/84
--- NOTE | 2020-12-07 09:04 | REP ---
INDICATION: constipation, nausea, unable to pass gas. Repeat dictation. Preliminary report is provided at the time of the exam by errol العراقي. COMPARISON: None. TECHNIQUE: Three view acute abdominal series including upright chest radiograph. FINDINGS: Upright chest radiograph is unremarkable. There is no evidence of infiltrate or free subdiaphragmatic air. Heart size is normal. Pulmonary vasculature is not increased. Pleural angles are sharp. Supine and erect views of the abdomen demonstrate a normal bowel gas pattern. The psoas margins and the flank stripes are intact. There is no evidence of mass, organomegaly, or pathologic calcification. There are surgical clips in the right mid abdomen. Mild degenerative changes are seen in the lumbosacral junction and at the symphysis pubis. IMPRESSION: Negative acute abdominal series. <Electronically signed by Donaldo Wu > 12/07/20 0900
== END 2020-12-06 23:03 | disposition home or self-care (01) ==
LOC: M ED 19:27
DX: S39.011A Strain of muscle, fascia and tendon of abdomen, initial encounter (principal); X50.9XXA Other and unspecified overexertion or strenuous movements or postures, initial encounter; Y92.89 Other specified places as the place of occurrence of the external cause; Y99.0 Civilian activity done for income or pay

== ENCOUNTER → 2020-12-19 | Outpatient (CLI) | payer OTHER ==
--- NOTE | 2020-12-19 15:31 | REPMRS ---
Patient History The patient states she had a clinical breast exam in 12/2020 Family history of breast cancer at age 50 in maternal aunt. Benign radio exam breast specimen of the right breast, February 03, 2020. Benign stereotatic loc for ea lesion of the right breast, February 03, 2020. Took hormonal contraceptives for 8 months. Digital Woman Screen Mammo: December 19, 2020 - Exam #: [id number] Bilateral CC and MLO view(s) were taken. Technologist: Lynda Franz, Technologist Prior study comparison: August 14, 2020, right breast diagnostic unilateral mammo performed at [facility]. December 10, 2019, right breast digital mammo diagnostic unilateral, performed at [facility]. December 03, 2018, bilateral digital woman screen mammo performed at [facility]. December 20, 2011, bilateral digital mammo screening bilat performed at [facility]. FINDINGS: There are scattered fibroglandular densities. The Volpara volumetric breast density category is:B. There is a needle biopsy marker clip in the right breast. There has been no change in the appearance of the mammogram from the prior studies. There is a mild amount of scattered fibroglandular density which is fairly symmetric. There is no interval development of dominant mass, architectural distortion, or grouped microcalcification suggestive of malignancy. 3-D tomosynthesis shows no additional findings. Assessment: BI-RADS/ACR category 2 mammogram. Benign Findings. Recommendation Routine screening mammogram of both breasts in 1 year (for women over age 40). This patient's [facility] Lifetime Breast Cancer Risk is estimated at 12.5 %. This mammogram was interpreted with the aid of an FDA-approved computer-aided dectection system. Electronically Signed By: Donaldo Wu MD 12/19/20 [id number]
== END ==
LOC: M WHC 13:35
PROVIDERS: ATTEND Nurse Practitioner Women's Health
DX: Z12.31 Encounter for screening mammogram for malignant neoplasm of breast (principal)

== ENCOUNTER → 2021-03-16 | Outpatient (CLI) | payer OTHER ==
--- NOTE | 2021-03-16 16:49 | REP ---
INDICATION: STRAIN R/O RCT, CERVICALGIA R/O HERNIATED DISC. COMPARISON: None. TECHNIQUE: Sagittal and axial T1 and T2-weighted scans are acquired in the usual fashion with and without fat saturation. Sequences include spin echo, turbo spin-echo, and STIR imaging sequences. FINDINGS: Cervical vertebral body heights are preserved. Alignment is normal. Cortical and medullary bone signal intensity are normal. Craniocervical junction is unremarkable. The cervical cord is normal in course, caliber, and signal intensity on T1-T2 weighted scans. Axial and sagittal images taken at C2-3 show no disc abnormality. At C3-C4, there is a broad-based central focal disc protrusion. The disc is narrowed. The ventral subarachnoid space is effaced and there is early discogenic spurring. There is uncovertebral spurring on the right and to a lesser extent on the left at C3-4 producing minimal foraminal narrowing. Canal size is borderline. Midline AP dimension of the thecal sac is 9 mm. At C4-5, there is a small central focal disc protrusion. This effaces the ventral subarachnoid space but does not contact the cord. No foraminal narrowing is seen. At C5-C6, there is a small right paracentral focal disc protrusion indenting the ventral margin of the thecal sac. There is minimal uncovertebral spurring on the left. At C6-C7, there is a small focal central disc protrusion effacing the ventral subarachnoid space. No canal stenosis or neural foraminal narrowing is seen. The C7-T1 level is unremarkable. IMPRESSION: Degenerative spondylosis changes. Focal disc protrusions are noted at C3-4, C4-5, C5-6, and C6-7. Uncovertebral spurring is noted at C3-4 bilaterally. Canal size is borderline at C3-4. <Electronically signed by Donaldo Wu > 03/16/21 [id number]
--- NOTE | 2021-03-16 17:12 | REP ---
INDICATION: STRAIN R/O RCT, CERVICALGIA R/O HERNIATED DISC. COMPARISON: None. TECHNIQUE: Coronal oblique T1, T2 fat sat, sagittal oblique T2 fat sat, axial T2 fat sat, gradient echo. FINDINGS: Rotator cuff: There is a full-thickness partial tear of the supraspinatus tendon. Acromioclavicular joint: There are moderate hypertrophic degenerative changes of the acromioclavicular joint. Acromion: Type 2 Biceps Tendon: In bicipital groove, no tenosynovitis. Hill Sach's deformity: None. Deltoid muscle: There is a partial tear of the lateral deltoid muscle. Biceps labral complex: Intact. Labrum: No tear. Cartilage: No defects. Bone marrow: There is mild subcortical marrow edema along the acromioclavicular joint. Joint fluid: No glenohumeral joint effusion. There is a small amount of fluid in the subacromial/subdeltoid bursae. IMPRESSION: Full-thickness partial tear supraspinatus tendon. Moderate hypertrophic degenerative changes acromioclavicular joint with a type 2 acromion. Partial tear lateral deltoid muscle. No evidence of a labral tear. <Electronically signed by Thor Patel > 03/16/21 0314
== END ==
LOC: M PLARAD 13:39
PROVIDERS: ATTEND Orthopaedic Surgery
DX: S46.011D Strain of muscle(s) and tendon(s) of the rotator cuff of right shoulder, subsequent encounter (principal); M54.2 Cervicalgia; W18.30XD Fall on same level, unspecified, subsequent encounter; Y92.009 Unspecified place in unspecified non-institutional (private) residence as the place of occurrence of the external cause

== ENCOUNTER → 2021-07-30 | Outpatient (CLI) | payer OTHER | LOC: M EKG 08:39 | PROVIDERS: ATTEND Orthopaedic Surgery | DX: Z01.810 Encounter for preprocedural cardiovascular examination (principal) ==

== ENCOUNTER → 2022-01-10 | Outpatient (CLI) | payer OTHER | LOC: M PLAIMG 10:57 | PROVIDERS: ATTEND Physician Assistant | DX: M50.30 Other cervical disc degeneration, unspecified cervical region (principal); M65.811 Other synovitis and tenosynovitis, right shoulder; M19.011 Primary osteoarthritis, right shoulder; M25.411 Effusion, right shoulder; S46.011D Strain of muscle(s) and tendon(s) of the rotator cuff of right shoulder, subsequent encounter; X58.XXXD Exposure to other specified factors, subsequent encounter; Y92.89 Other specified places as the place of occurrence of the external cause ==

== ENCOUNTER → 2022-01-10 | Outpatient (CLI) | payer BC | LOC: M WHC 14:07 | PROVIDERS: ATTEND Advanced Practice Midwife | DX: Z12.31 Encounter for screening mammogram for malignant neoplasm of breast (principal); Z80.3 Family history of malignant neoplasm of breast ==

== ENCOUNTER → 2022-01-10 | Outpatient (CLI) | payer BC ==
[2022-01-10 13:57] LABS: BASO # 0.1 10^3/uL (0.0-0.2); BASO % 0.8 % (0.0-1.0); EOS # 0.1 10^3/uL (0.0-0.5); EOS % 1.8 % (0.0-3.0); HEMATOCRIT 43.4 % (36.0-47.0); HEMOGLOBIN 14.4 g/dl (12.0-15.5); LYMPH # 1.6 10^3/uL (1.5-5.0); LYMPH % 24.3 % (24.0-44.0); MEAN CORPUSCULAR HEMOGLOBIN 29.1 pg (27.0-33.0); MEAN CORPUSCULAR HGB CONC 33.2 g/dl (32.0-36.5); MEAN CORPUSCULAR VOLUME 87.9 fl (80.0-96.0); MONO # 0.4 10^3/uL (0.0-0.8); MONO % 6.1 % (2.0-8.0); NEUTROPHILS # 4.3 10^3/uL (1.5-8.5); NEUTROPHILS % 66.4 % (36.0-66.0); PLATELET COUNT, AUTOMATED 262 10^3/uL (150-450); RED BLOOD COUNT 4.94 10^6/uL (4.00-5.40); WHITE BLOOD COUNT 6.5 10^3/uL (4.0-10.0)
[2022-01-10 14:23] LABS: ALBUMIN 3.9 GM/DL (3.2-5.2); ALT/SGPT 25 U/L (12-78); BILIRUBIN,TOTAL 0.3 MG/DL (0.2-1.0); BLOOD UREA NITROGEN 14 MG/DL (7-18); CARBON DIOXIDE LEVEL 32 MEQ/L (21-32); CHLORIDE LEVEL 106 MEQ/L (98-107); CHOLESTEROL LEVEL 370 MG/DL (<200); CHOLESTEROL RISK RATIO 6.491 (<5); CREATININE FOR GFR 0.66 MG/DL (0.55-1.30); GLOMERULAR FILTRATION RATE > 60.0 (>51); GLUCOSE, FASTING 109 MG/DL (70-100); HDL CHOLESTEROL 57 MG/DL (>40); LDL CHOLESTEROL 276 MG/DL (<100); NON-HDL-C 313 MG/DL; POTASSIUM SERUM 4.9 MEQ/L (3.5-5.1); SODIUM LEVEL 141 MEQ/L (136-145); TOTAL PROTEIN 7.5 GM/DL (6.4-8.2); TRIGLYCERIDES LEVEL 185 MG/DL (<150)
== END ==
LOC: M PLALAB 11:04
PROVIDERS: ATTEND Nurse Practitioner Family
DX: Z00.00 Encounter for general adult medical examination without abnormal findings (principal)

== ENCOUNTER → 2022-01-21 | Outpatient (CLI) | payer BC ==
[2022-01-21 13:56] LABS: HEMOGLOBIN A1c 5.9 %
[2022-01-21 14:08] LABS: ALBUMIN 4.1 GM/DL (3.2-5.2); ALT/SGPT 26 U/L (12-78); BILIRUBIN,TOTAL 0.4 MG/DL (0.2-1.0); BLOOD UREA NITROGEN 14 MG/DL (7-18); CALCIUM LEVEL 9.9 MG/DL (8.5-10.1); CARBON DIOXIDE LEVEL 31 MEQ/L (21-32); CHLORIDE LEVEL 107 MEQ/L (98-107); CHOLESTEROL LEVEL 231 MG/DL (<200); CHOLESTEROL RISK RATIO 3.397 (<5); CREATININE FOR GFR 0.66 MG/DL (0.55-1.30); GLOMERULAR FILTRATION RATE > 60.0 (>51); GLUCOSE, FASTING 109 MG/DL (70-100); HDL CHOLESTEROL 68 MG/DL (>40); LDL CHOLESTEROL 130 MG/DL (<100); NON-HDL-C 163 MG/DL; POTASSIUM SERUM 4.6 MEQ/L (3.5-5.1); SODIUM LEVEL 143 MEQ/L (136-145); TOTAL PROTEIN 7.4 GM/DL (6.4-8.2); TRIGLYCERIDES LEVEL 167 MG/DL (<150)
== END ==
LOC: M PLALAB 11:37
PROVIDERS: ATTEND Nurse Practitioner Family
DX: R73.01 Impaired fasting glucose (principal)

== ENCOUNTER → 2022-02-06 | Outpatient (CLI) | payer OTHER, BC ==
[2022-02-06 13:59] LABS: PLATELET COUNT, AUTOMATED 235 10^3/uL (150-450)
[2022-02-06 14:06] LABS: INR 0.97; PROTHROMBIN TIME 13.3 SECONDS (12.7-14.5)
[2022-02-06 14:07] LABS: PARTIAL THROMBOPLASTIN TIME 26.9 SECONDS (25.9-37.0)
[2022-02-06 14:16] LABS: COLLAGEN EPINEPHRINE 115 SECONDS (74-162)
== END ==
LOC: M PLALAB 11:42
PROVIDERS: ATTEND Physician Assistant
DX: M54.12 Radiculopathy, cervical region (principal)

== ENCOUNTER → 2022-02-20 | Outpatient (REF) | LOC: M PLAIMG 10:34 | PROVIDERS: ATTEND Internal Medicine | DX: M54.59 Other low back pain (principal) ==

== ENCOUNTER → 2022-07-05 | Outpatient (CLI) | payer BC ==
[2022-07-05 13:52] LABS: HEMOGLOBIN A1c 5.9 %
== END ==
LOC: M PLALAB 10:09
PROVIDERS: ATTEND Nurse Practitioner Family
DX: R73.03 Prediabetes (principal)

== ENCOUNTER → 2022-07-23 | Outpatient (CLI) | payer BC ==
[2022-07-23 18:45] LABS: FREE T4 0.93 NG/DL (0.76-1.46); THYROID STIMULATING HORMONE 1.2 uIU/ML (0.358-3.740)
== END ==
LOC: M PLALAB 14:51
PROVIDERS: ATTEND Nurse Practitioner Family
DX: L65.9 Nonscarring hair loss, unspecified (principal)

== ENCOUNTER → 2022-09-11 | Outpatient (CLI) | payer BC | LOC: M RAD 11:45 | PROVIDERS: ATTEND Surgery Vascular Surgery | DX: I83.813 Varicose veins of bilateral lower extremities with pain (principal) ==

== ENCOUNTER → 2022-10-24 | Outpatient (CLI) | payer OTHER ==
[2022-10-24 10:35] LABS: PLATELET COUNT, AUTOMATED 216 10^3/uL (150-450)
[2022-10-24 10:47] LABS: INR 0.91; PROTHROMBIN TIME 12.5 SECONDS (12.5-14.5)
[2022-10-24 10:48] LABS: PARTIAL THROMBOPLASTIN TIME 25.3 SECONDS (24.8-34.2)
[2022-10-24 13:32] LABS: COLLAGEN EPINEPHRINE 144 SECONDS (74-162)
== END ==
LOC: M PLALAB 09:08
PROVIDERS: ATTEND Physician Assistant
DX: M50.10 Cervical disc disorder with radiculopathy, unspecified cervical region (principal)

== ENCOUNTER 2022-10-28 14:56 | Emergency (ER) | payer OTHER, BC ==
[2022-10-28 15:58] LABS: BASO % 0.6 % (0.0-1.0); EOS # 0.1 10^3/uL (0.0-0.5); HEMATOCRIT 41.3 % (36.0-47.0); HEMOGLOBIN 13.4 g/dl (12.0-15.5); LYMPH % 14.4 % (24.0-44.0); MEAN CORPUSCULAR HEMOGLOBIN 29.1 pg (27.0-33.0); MEAN CORPUSCULAR HGB CONC 32.4 g/dl (32.0-36.5); MEAN CORPUSCULAR VOLUME 89.6 fl (80.0-96.0); MONO # 0.4 10^3/uL (0.0-0.8); MONO % 6.5 % (2.0-8.0); NEUTROPHILS # 5.2 10^3/uL (1.5-8.5); NEUTROPHILS % 77.1 % (36.0-66.0); PLATELET COUNT, AUTOMATED 198 10^3/uL (150-450); RED BLOOD COUNT 4.61 10^6/uL (4.00-5.40); WHITE BLOOD COUNT 6.8 10^3/uL (4.0-10.0)
[2022-10-28 16:22] LABS: MAGNESIUM LEVEL 1.8 MG/DL (1.8-2.4)
[2022-10-28 16:24] LABS: BLOOD UREA NITROGEN 17 MG/DL (9-23); CALCIUM LEVEL 9.2 MG/DL (8.5-10.1); CARBON DIOXIDE LEVEL 29 MMOL/L (20-31); CHLORIDE LEVEL 103 MMOL/L (98-107); CK-MB VALUE MASS < 1.0 NG/ML (<3.6); CPK CREATINE PHOSPHOKINASE 52 U/L (34-145); CREATININE FOR GFR 0.65 MG/DL (0.55-1.30); GLOMERULAR FILTRATION RATE > 60.0 (>51); GLUCOSE, FASTING 115 MG/DL (60-100); MB/CK RELATIVE INDEX 1.92 (< OR =4); POTASSIUM SERUM 4.2 MMOL/L (3.5-5.1); SODIUM LEVEL 139 MMOL/L (136-145)
[2022-10-28 16:28] LABS: FREE T4 0.96 NG/DL (0.89-1.76); THYROID STIMULATING HORMONE 2.059 uIU/ML (0.55-4.78)
[2022-10-28 17:28] LABS: CK-MB VALUE MASS < 1.0 NG/ML (<3.6)
[2022-10-28 17:29] LABS: CPK CREATINE PHOSPHOKINASE 50 U/L (34-145)
[2022-10-28 19:32] VITALS: BP 146/87
== END 2022-10-28 19:39 | disposition home or self-care (01) ==
LOC: M ED 14:56
DX: R55 Syncope and collapse (principal); M54.12 Radiculopathy, cervical region

== ENCOUNTER → 2022-12-10 | Outpatient (CLI) | payer BC ==
[2022-12-10 14:01] LABS: BASO % 0.4 % (0.0-1.0); EOS # 0.1 10^3/uL (0.0-0.5); EOS % 1.9 % (0.0-3.0); HEMATOCRIT 42.6 % (36.0-47.0); HEMOGLOBIN 13.7 g/dl (12.0-15.5); LYMPH # 1.2 10^3/uL (1.5-5.0); MEAN CORPUSCULAR HEMOGLOBIN 29.2 pg (27.0-33.0); MEAN CORPUSCULAR HGB CONC 32.2 g/dl (32.0-36.5); MEAN CORPUSCULAR VOLUME 90.8 fl (80.0-96.0); MONO # 0.5 10^3/uL (0.0-0.8); MONO % 8.1 % (2.0-8.0); NEUTROPHILS # 3.9 10^3/uL (1.5-8.5); NEUTROPHILS % 67.9 % (36.0-66.0); PLATELET COUNT, AUTOMATED 225 10^3/uL (150-450); RED BLOOD COUNT 4.69 10^6/uL (4.00-5.40); WHITE BLOOD COUNT 5.7 10^3/uL (4.0-10.0)
[2022-12-10 14:07] LABS: ALBUMIN 3.8 G/DL (3.2-5.2); ALKALINE PHOSPHATASE 89 U/L (46-116); ALT/SGPT 22 U/L (7.0-40); AST/SGOT 18 U/L (<34); BILIRUBIN,TOTAL 0.5 MG/DL (0.3-1.2); BLOOD UREA NITROGEN 18 MG/DL (9-23); CALCIUM LEVEL 9.6 MG/DL (8.5-10.1); CARBON DIOXIDE LEVEL 30 MMOL/L (20-31); CHLORIDE LEVEL 104 MMOL/L (98-107); CHOLESTEROL LEVEL 338 MG/DL (<200); CHOLESTEROL RISK RATIO 6.61 (<5); CREATININE FOR GFR 0.71 MG/DL (0.55-1.30); GLOMERULAR FILTRATION RATE > 60.0 (>51); GLUCOSE, FASTING 124 MG/DL (60-100); HDL CHOLESTEROL 51.1 MG/DL (>40); LDL CHOLESTEROL 241.3 MG/DL (<100); NON-HDL-C 287 MG/DL; POTASSIUM SERUM 4.2 MMOL/L (3.5-5.1); SODIUM LEVEL 141 MMOL/L (136-145); TOTAL PROTEIN 7.3 G/DL (5.7-8.2); TRIGLYCERIDES LEVEL 228 MG/DL (<150)
[2022-12-10 15:30] LABS: HEMOGLOBIN A1c 5.9 % (4.0-6.0)
== END ==
LOC: M PLALAB 10:03
PROVIDERS: ATTEND Nurse Practitioner Family
DX: R73.03 Prediabetes (principal); E78.2 Mixed hyperlipidemia

== ENCOUNTER → 2023-02-25 | Outpatient (CLI) | payer BC ==
[2023-02-25 15:30] LABS: ALBUMIN 4.1 G/DL (3.2-5.2); BILIRUBIN,DIRECT 0.1 MG/DL (<0.4); BILIRUBIN,TOTAL 0.5 MG/DL (0.3-1.2); CHOLESTEROL RISK RATIO 3.52 (<5); LDL CHOLESTEROL 102.8 MG/DL (<100); TOTAL PROTEIN 7.3 G/DL (5.7-8.2)
== END ==
LOC: M PLALAB 11:05
PROVIDERS: ATTEND Nurse Practitioner Family
DX: E78.2 Mixed hyperlipidemia (principal)

== ENCOUNTER → 2023-02-25 | Outpatient (CLI) | payer OTHER | LOC: M PLAIMG 10:55 | PROVIDERS: ATTEND Orthopaedic Surgery | DX: M25.519 Pain in unspecified shoulder (principal) ==

== ENCOUNTER → 2023-05-28 | Outpatient (CLI) | payer BC ==
[2023-05-28 12:23] LABS: HEMOGLOBIN A1c 6.3 % (4.0-6.0)
[2023-05-28 12:41] LABS: ALBUMIN 3.8 G/DL (3.2-5.2); ALKALINE PHOSPHATASE 115 U/L (46-116); ALT/SGPT 45 U/L (7.0-40); AST/SGOT 22 U/L (<34); BILIRUBIN,TOTAL 0.6 MG/DL (0.3-1.2); BLOOD UREA NITROGEN 16 MG/DL (9-23); CALCIUM LEVEL 9.3 MG/DL (8.5-10.1); CARBON DIOXIDE LEVEL 30 MMOL/L (20-31); CHLORIDE LEVEL 104 MMOL/L (98-107); CHOLESTEROL LEVEL 205 MG/DL (<200); CHOLESTEROL RISK RATIO 3.32 (<5); CREATININE FOR GFR 0.66 MG/DL (0.55-1.30); GLOMERULAR FILTRATION RATE > 60.0 (>51); GLUCOSE, FASTING 127 MG/DL (60-100); HDL CHOLESTEROL 61.7 MG/DL (>40); LDL CHOLESTEROL 103.5 MG/DL (<100); NON-HDL-C 143.3 MG/DL; POTASSIUM SERUM 4.2 MMOL/L (3.5-5.1); SODIUM LEVEL 140 MMOL/L (136-145); TRIGLYCERIDES LEVEL 199 MG/DL (<150)
== END ==
LOC: M PLALAB 09:37
PROVIDERS: ATTEND Registered Nurse
DX: R73.03 Prediabetes (principal); E78.2 Mixed hyperlipidemia

== ENCOUNTER → 2023-06-02 | Outpatient (REF) | payer BC | LOC: M LAB REF 17:04 | PROVIDERS: ATTEND Registered Nurse | DX: R30.0 Dysuria (principal) ==

== ENCOUNTER → 2023-08-21 | Outpatient (CLI) | payer BC ==
[2023-08-21 13:41] LABS: HEMOGLOBIN A1c 5.7 % (4.0-6.0)
[2023-08-21 13:50] LABS: ALBUMIN 3.9 G/DL (3.2-5.2); ALKALINE PHOSPHATASE 99 U/L (46-116); ALT/SGPT 23 U/L (7.0-40); AST/SGOT 19 U/L (<34); BILIRUBIN,TOTAL 0.5 MG/DL (0.3-1.2); BLOOD UREA NITROGEN 16 MG/DL (9-23); CALCIUM LEVEL 9.7 MG/DL (8.5-10.1); CARBON DIOXIDE LEVEL 29 MMOL/L (20-31); CHLORIDE LEVEL 104 MMOL/L (98-107); CHOLESTEROL LEVEL 190 MG/DL (<200); CHOLESTEROL RISK RATIO 3.49 (<5); CREATININE FOR GFR 0.65 MG/DL (0.55-1.30); GLOMERULAR FILTRATION RATE > 60.0 (>51); GLUCOSE, FASTING 114 MG/DL (60-100); HDL CHOLESTEROL 54.3 MG/DL (>40); LDL CHOLESTEROL 107.5 MG/DL (<100); NON-HDL-C 135.7 MG/DL; POTASSIUM SERUM 4.3 MMOL/L (3.5-5.1); SODIUM LEVEL 141 MMOL/L (136-145); TOTAL PROTEIN 7.1 G/DL (5.7-8.2); TRIGLYCERIDES LEVEL 141 MG/DL (<150)
== END ==
LOC: M PLALAB 11:53
PROVIDERS: ATTEND Registered Nurse
DX: E11.9 Type 2 diabetes mellitus without complications (principal)

== ENCOUNTER → 2023-10-13 | Outpatient (REF) | payer BC | LOC: M LAB REF 17:09 | PROVIDERS: ATTEND Registered Nurse | DX: R30.0 Dysuria (principal) ==

== ENCOUNTER → 2024-01-21 | Outpatient (REF) | payer MEDICARE ==
[2024-01-21 17:28] LABS: APPEARANCE, URINE CLEAR (CLEAR); BACTERIA, URINE AUTO 1+ (NEGATIVE); BILIRUBIN, URINE AUTO NEGATIVE (NEGATIVE); BLOOD, URINE BLOOD NEGATIVE (NEGATIVE); COLOR, URINE YELLOW (YELLOW); GLUCOSE, URINE (UA) AUTO NEGATIVE (NEGATIVE); KETONE, URINE AUTO NEGATIVE (NEGATIVE); LEUKOCYTE ESTERASE, URINE AUTO NEGATIVE (NEGATIVE); NITRITE, URINE AUTO NEGATIVE (NEGATIVE); PROTEIN, URINE AUTO NEGATIVE (NEGATIVE); RBC, URINE AUTO 1 /HPF (0-3); SPECIFIC GRAVITY URINE AUTO 1.013 (1.002-1.035); SQUAMOUS EPITHELIAL CELL UR AU 1 /HPF (0-6); UROBILINOGEN, URINE AUTO 0.2 mg/dL (0.0-2.0); WBC, URINE AUTO 1 /HPF (0-3)
== END ==
LOC: M LAB REF 16:46
PROVIDERS: ATTEND Registered Nurse
DX: R30.0 Dysuria (principal)

== ENCOUNTER → 2024-01-23 | Outpatient (CLI) | payer MEDICARE | LOC: M RAD 07:16 | PROVIDERS: ATTEND Registered Nurse | DX: N20.0 Calculus of kidney (principal); R19.09 Other intra-abdominal and pelvic swelling, mass and lump ==

== ENCOUNTER → 2024-01-29 | Outpatient (CLI) | payer MEDICARE ==
[2024-01-29 10:50] LABS: BASO % 0.6 % (0.0-1.0); EOS # 0.1 10^3/uL (0.0-0.5); EOS % 1.9 % (0.0-3.0); HEMATOCRIT 44.7 % (36.0-47.0); HEMOGLOBIN 14.8 g/dl (12.0-15.5); LYMPH # 1.9 10^3/uL (1.5-5.0); MEAN CORPUSCULAR HEMOGLOBIN 29.7 pg (27.0-33.0); MEAN CORPUSCULAR HGB CONC 33.1 g/dl (32.0-36.5); MEAN CORPUSCULAR VOLUME 89.8 fl (80.0-96.0); MONO # 0.5 10^3/uL (0.0-0.8); MONO % 7.1 % (2.0-8.0); NEUTROPHILS # 4.3 10^3/uL (1.5-8.5); NEUTROPHILS % 61.5 % (36.0-66.0); PLATELET COUNT, AUTOMATED 233 10^3/uL (150-450); RED BLOOD COUNT 4.98 10^6/uL (4.00-5.40); WHITE BLOOD COUNT 6.9 10^3/uL (4.0-10.0)
[2024-01-29 11:00] LABS: HEMOGLOBIN A1c 6.4 % (4.0-6.0)
[2024-01-29 11:27] LABS: ALKALINE PHOSPHATASE 77 U/L (46-116); ALT/SGPT 24 U/L (7.0-40); AST/SGOT 11 U/L (<34); BILIRUBIN,TOTAL 0.5 MG/DL (0.3-1.2); BLOOD UREA NITROGEN 14 MG/DL (9-23); CALCIUM LEVEL 9.8 MG/DL (8.5-10.1); CARBON DIOXIDE LEVEL 29 MMOL/L (20-31); CHLORIDE LEVEL 106 MMOL/L (98-107); CHOLESTEROL LEVEL 305 MG/DL (<200); CHOLESTEROL RISK RATIO 6.54 (<5); GLOMERULAR FILTRATION RATE > 60.0 (>51); GLUCOSE, FASTING 132 MG/DL (60-100); HDL CHOLESTEROL 46.6 MG/DL (>40); LDL CHOLESTEROL 203.2 MG/DL (<100); NON-HDL-C 258.4 MG/DL; SODIUM LEVEL 141 MMOL/L (136-145); TOTAL PROTEIN 7.1 G/DL (5.7-8.2); TRIGLYCERIDES LEVEL 276 MG/DL (<150)
== END ==
LOC: M PLALAB 07:29
PROVIDERS: ATTEND Registered Nurse
DX: E11.9 Type 2 diabetes mellitus without complications (principal)

== ENCOUNTER → 2024-04-16 | Outpatient (CLI) | payer MEDICARE | LOC: M WHC 13:24 | PROVIDERS: ATTEND Registered Nurse | DX: Z12.31 Encounter for screening mammogram for malignant neoplasm of breast (principal) ==

== ENCOUNTER → 2024-06-07 | Outpatient (CLI) | payer MEDICARE, MEDICAID ==
[2024-06-07 13:49] LABS: ALBUMIN 4.1 G/DL (3.2-5.2); ALKALINE PHOSPHATASE 102 U/L (46-116); ALT/SGPT 22 U/L (7.0-40); AST/SGOT 11 U/L (<34); BILIRUBIN,TOTAL 0.5 MG/DL (0.3-1.2); BLOOD UREA NITROGEN 16 MG/DL (9-23); CALCIUM LEVEL 9.8 MG/DL (8.5-10.1); CARBON DIOXIDE LEVEL 29 MMOL/L (20-31); CHLORIDE LEVEL 107 MMOL/L (98-107); CHOLESTEROL LEVEL 183 MG/DL (<200); CHOLESTEROL RISK RATIO 3.73 (<5); CREATININE FOR GFR 0.69 MG/DL (0.55-1.30); GLOMERULAR FILTRATION RATE > 60.0 (>51); GLUCOSE, FASTING 117 MG/DL (60-100); LDL CHOLESTEROL 95.8 MG/DL (<100); POTASSIUM SERUM 4.5 MMOL/L (3.5-5.1); SODIUM LEVEL 140 MMOL/L (136-145); TOTAL PROTEIN 7.3 G/DL (5.7-8.2); TRIGLYCERIDES LEVEL 191 MG/DL (<150)
[2024-06-07 14:06] LABS: HEMOGLOBIN A1c 5.5 % (4.0-6.0)
== END ==
LOC: M PLALAB 09:59
PROVIDERS: ATTEND Registered Nurse
DX: E78.2 Mixed hyperlipidemia (principal)

== ENCOUNTER → 2024-12-09 | Outpatient (CLI) | payer MEDICAID, MEDICARE ==
[2024-12-09 13:38] LABS: BASO % 0.6 % (0.0-1.0); EOS # 0.1 10^3/uL (0.0-0.5); EOS % 2.2 % (0.0-3.0); HEMATOCRIT 44.6 % (36.0-47.0); HEMOGLOBIN 14.5 g/dl (12.0-15.5); LYMPH # 1.8 10^3/uL (1.5-5.0); LYMPH % 28.9 % (24.0-44.0); MEAN CORPUSCULAR HEMOGLOBIN 29.1 pg (27.0-33.0); MEAN CORPUSCULAR HGB CONC 32.5 g/dl (32.0-36.5); MEAN CORPUSCULAR VOLUME 89.6 fl (80.0-96.0); MONO # 0.5 10^3/uL (0.0-0.8); MONO % 7.7 % (2.0-8.0); NEUTROPHILS # 3.8 10^3/uL (1.5-8.5); NEUTROPHILS % 60.3 % (36.0-66.0); PLATELET COUNT, AUTOMATED 232 10^3/uL (150-450); RED BLOOD COUNT 4.98 10^6/uL (4.00-5.40); WHITE BLOOD COUNT 6.3 10^3/uL (4.0-10.0)
[2024-12-09 14:04] LABS: ALBUMIN 4.1 G/DL (3.2-5.2); ALKALINE PHOSPHATASE 78 U/L (35-104); ALT/SGPT 30 U/L (7.0-40); AST/SGOT 18 U/L (<34); BILIRUBIN,TOTAL 0.5 MG/DL (0.3-1.2); BLOOD UREA NITROGEN 18 MG/DL (9-23); CALCIUM LEVEL 9.9 MG/DL (8.5-10.1); CARBON DIOXIDE LEVEL 29 MMOL/L (20-31); CHLORIDE LEVEL 105 MMOL/L (98-107); CHOLESTEROL LEVEL 233 MG/DL (<200); CHOLESTEROL RISK RATIO 4.08 (<5); CREATININE FOR GFR 0.71 MG/DL (0.55-1.30); GLOMERULAR FILTRATION RATE > 60.0 (>51); GLUCOSE, FASTING 124 MG/DL (60-100); HDL CHOLESTEROL 57.1 MG/DL (>40); LDL CHOLESTEROL 137.7 MG/DL (<100); NON-HDL-C 175.9 MG/DL; POTASSIUM SERUM 4.3 MMOL/L (3.5-5.1); SODIUM LEVEL 143 MMOL/L (136-145); TOTAL PROTEIN 7.4 G/DL (5.7-8.2); TRIGLYCERIDES LEVEL 191 MG/DL (<150)
[2024-12-09 14:20] LABS: HEMOGLOBIN A1c 5.5 % (4.0-6.0)
== END ==
LOC: M PLALAB 09:01
PROVIDERS: ATTEND Registered Nurse
DX: E11.9 Type 2 diabetes mellitus without complications (principal); E78.2 Mixed hyperlipidemia

== ENCOUNTER → 2025-06-13 | Outpatient (CLI) | payer MEDICARE ==
[2025-06-13 14:04] LABS: BASO # 0.0 10^3/uL (0.0-0.2); BASO % 0.6 % (0.0-1.0); EOS # 0.1 10^3/uL (0.0-0.5); EOS % 1.7 % (0.0-3.0); LYMPH # 1.9 10^3/uL (1.5-5.0); LYMPH % 28.0 % (24.0-44.0); MONO # 0.5 10^3/uL (0.0-0.8); MONO % 6.9 % (2.0-8.0); NEUTROPHILS # 4.3 10^3/uL (1.5-8.5); NEUTROPHILS % 62.2 % (36.0-66.0); PLATELET COUNT, AUTOMATED 263 10^3/uL (150-450)
[2025-06-13 14:09] LABS: ALT/SGPT 19 U/L (7.0-40); AST/SGOT 15 U/L (<34); CALCIUM LEVEL 10.1 MG/DL (8.5-10.1); CARBON DIOXIDE LEVEL 29 MMOL/L (20-31); CHLORIDE LEVEL 103 MMOL/L (98-107); CHOLESTEROL LEVEL 343 MG/DL (<200); CHOLESTEROL RISK RATIO 7.45 (<5); CREATININE FOR GFR 0.71 MG/DL (0.55-1.30); GLOMERULAR FILTRATION RATE > 90.0 (>51); LDL CHOLESTEROL 228.2 MG/DL (<100); NON-HDL-C 297.0 MG/DL; POTASSIUM SERUM 4.6 MMOL/L (3.5-5.1); SODIUM LEVEL 143 MMOL/L (136-145); TRIGLYCERIDES LEVEL 344 MG/DL (<150)
[2025-06-13 14:34] LABS: ESTIMATED AVERAGE GLUCOSE 111.0 MG/DL (60-110)
== END ==
LOC: M PLALAB 11:23
PROVIDERS: ATTEND Registered Nurse
DX: E11.9 Type 2 diabetes mellitus without complications (principal)